=== PATIENT | male | born 1995 | race African-American/Black ===

== ENCOUNTER 2018-09-26 13:32 | Inpatient (IN) | payer OTHER, BC ==
[~2018-09-26 13:32] MED LIST: Iopamidol 370 76% 100 ML VIAL ONE
[2018-09-26] MEDS ORDERED: Fentanyl 100 MCG/2 ML VIAL ONE (13:44)
[2018-09-26 13:53] LABS: #Basophils 0.1 thou/uL (0.0-0.2); #Eosinphils 0.2 thou/uL (0.0-0.7); #Lymphocytes 3.2 thou/uL (1.20-3.40); #Monocytes 0.6 thou/uL (0.11-0.59); %Eosinophils 2.8 % (0.0-10.0); %Lymphocytes 40.1 % (21.0-51.0); %Monocytes 6.9 % (0.0-10.0); %Neutrophils 49.2 % (42.0-75.0); Hemoglobin 14.9 g/dL (14.0-18.0); Mean Corpuscular HGB CONC 33.7 g/dL (32.0-36.0); Mean Corpuscular Hemoglobin 30.6 pg (27.0-31.0); Mean Corpuscular Volume 90.6 fL (78.0-98.0); Mean Platelet Volume 6.6 fL (7.4-10.4); Platelet Count 256 thou/uL (130-400); RBC Distribution Width 11.5 % (11.5-14.5); Red Blood Cell (RBC) Count 4.87 mill/uL (4.70-6.10); White Blood Cell (WBC) Count 8.1 thou/uL (4.8-10.8)
[2018-09-26 14:11] LABS: Alcohol Less than 10 mg/dL (Less than 10); Anion Gap 10 mmol/L (10-20); BUN (Urea Nitrogen) 15 mg/dL (8.9-20.6); Calc. Creatinine Clearance 0 mL/min (70-130); Calcium 9.3 mg/dL (7.8-10.44); Carbon Dioxide 25 mmol/L (22-29); Chloride 109 mmol/L (98-107); Estimated GFR-MDRD Greater than 90; Glucose 106 mg/dL (70-105); Potassium 4.2 mmol/L (3.5-5.1); Sodium 140 mmol/L (136-145)
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
[2018-09-26] MEDS ORDERED: Midazolam HCl 2 mg/2 ml Vial ONE (14:46)
[2018-09-26] MEDS ORDERED: Fentanyl 250 MCG/5 ML VIAL ONE (14:46)
[2018-09-26] MEDS ORDERED: Thrombin 5000 UNITS/5 ML VIAL ONE (14:53)
[2018-09-26] MEDS ORDERED: Lidocaine 1% w/Epinephrine 1:100K 20 ML VIAL ONE (14:53)
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
[2018-09-26 15:18] LABS: Bilirubin Negative (Negative); Blood, Urine Negative (Negative); Clarity CLEAR (Clear); Glucose, Urine (Dipstick) Negative (Negative); Leukocyte Trace (Negative); Nitrite Negative (Negative); Protein, Urine (Dipstick) Negative (Neg-Trace); Specific Gravity, Urine 1.026 (1.002-1.036); pH, Urine 6.5 (5.0-9.0)
[2018-09-26 15:19] LABS: Bacteria/HPF None Seen HPF (None Seen); Hyaline Casts/LPF 4-6 HYALINE CAST LPF (0-3 Hyaline); Pathc Cast-AUWi Flag 0.14 (0-2.49); Squamous Epithelial 0-3 HPF (0-3); WBC/HPF 0-3 HPF (0-3)
[2018-09-26 15:23] LABS: INR-International Normal Ratio 1.1; PTT 32.1 SEC (22.9-36.1); Prothrombin Time 13.9 SEC (12.0-14.7)
[2018-09-26 15:28] LABS: Amphetamine Not Detected (NotDetected); Barbiturates Screen Not Detected (NotDetected); Benzodiazepine Screen Not Detected (NotDetected); Cocaine Metabolite Screen Not Detected (NotDetected); Medtox Control Line Valid? VALID (VALID); Medtox Reader # READER 4; Methadone Not Detected (NotDetected); Methamphetamine Not Detected (NotDetected); Opiate Screen Not Detected (NotDetected); Oxycodone Screen Not Detected (NotDetected); Phencyclidine (PCP) Not Detected (NotDetected); THC/Cannabinoid Screen Detected (NotDetected); Tricyclic Screen Not Detected (NotDetected)
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
[2018-09-26] MEDS ORDERED: ePHEDrine/0.9% NaCl/PF SYRINGE 50 mg/10 ml ONE (16:40)
[2018-09-26] MEDS ORDERED: PHENYLEPHRINE-NS 100 MCG/ML 10 ML SYRINGE ONE (16:40)
[2018-09-26] MEDS ORDERED: Dexamethasone 20 MG/5 ML VIAL ONE (16:40)
[2018-09-26] MEDS ORDERED: PROPOFOL 200 MG/20 ML VIAL ONE (16:40)
[2018-09-26] MEDS ORDERED: Ondansetron PF 4 MG/2 ML Vial ONE (16:40)
[2018-09-26] MEDS ORDERED: Rocuronium Bromide 10 MG/ML (10ML VIAL) ONE (16:40)
[2018-09-26] MEDS ORDERED: Ondansetron HCl/PF 4 MG/2 ML Vial IVP PRN (16:42)
[2018-09-26] MEDS ORDERED: Promethazine HCl 25 MG/ML VIAL SLOW IVP PRN (16:42)
[2018-09-26] MEDS ORDERED: Promethazine HCl 25 MG/ML VIAL IM PRN (16:42)
[2018-09-26] MEDS ORDERED: Dextrose 50% Abboject 50 ML SYRINGE SLOW IVP PRN (17:54)
[2018-09-26] MEDS ORDERED: CEFAZOLIN/Water 2 GM/20 ML SYRINGE SLOW IVP SCH (17:54)
[2018-09-26] MEDS ORDERED: Ondansetron PF 4 MG/2 ML Vial IVP PRN (17:54)
[2018-09-26] MEDS ORDERED: Dextrose 5% in Water 1,000 ML IV PRN (17:54)
[2018-09-26] MEDS ORDERED: hydrALAZINE 20 MG/ML VIAL SLOW IVP PRN (17:54)
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
[2018-09-26] MEDS: Sodium Chloride 0.9% 1,000 ML IV SCH (18:14)
[2018-09-26] MEDS: Acetaminophen 1,000 MG in Premix Bag 1 BAG IVPB SCH (18:28)
[2018-09-26 19:27] VITALS: BMI 27.7
[2018-09-26] MEDS: Famotidine/PF 20 mg/2ml Vial SLOW IVP SCH (21:07)
[2018-09-26] MEDS: Morphine 4 MG/ML VIAL SLOW IVP PRN ×2 (21:07→23:15)
[2018-09-26] MEDS: CEFAZOLIN 2 GM/50 ML-DEXTROSE 2 GM in Premix Bag 1 BAG IVPB SCH (21:07)
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
[2018-09-27] MEDS: Acetaminophen 1,000 MG in Premix Bag 1 BAG IVPB SCH ×4 (00:05→18:07)
--- NOTE | 2018-09-27 00:38 | OP ---
DATE OF PROCEDURE: 09/26/2018 CLINICAL PHARMACY TECHNICIAN: Jovan Royal PA-C. INDICATION: Unstable spine, prevent neurologic decline. DIAGNOSES: Fracture dislocation C6-C7 with associated spondylolisthesis with associated perched facet and incomplete spinal cord injury. PROCEDURE PERFORMED: Application of Rodriguez-Wells tongs with reduction of perched facet at C6-C7, anterior cervical diskectomy and fusion with open reduction, placement of allograft, placement of autograft, anterior cervical plating C6 to C7. ANESTHESIA: General. TECHNIQUE: The patient was brought into the operating room and placed under general anesthesia. He was placed in the supine position. The Rodriguez-Wells tongs was carefully applied to his skull. Weight was incrementally added until there was reduction of the C6-C7 anterolisthesis. This was visualized constantly with C-arm fluoroscopy. We then planned an incision at C6-C7, where we then performed an anterior cervical diskectomy and fusion at C6-C7. All disc materials as well as anterior and posterior osteophytes were removed. The associated and surrounding tissues were erythematous. We did perform additional reduction open. A 6 mm lordotic PEEK cage packed with allograft and autograft material was then placed into the interbody space. An anterior cervical plate was then fashioned to the front of the spine and secured with a total of four fixed screws. The weight on the Rodriguez-Wells tongs was then carefully released. The final C-arm image was obtained, which showed normal alignment of the spine at C6-7. The wound was irrigated. Hemostasis was maintained throughout. The wound was then closed in anatomic layers and a pressure dressing was applied. There were no known procedural complications. Job ID: [id number]
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
[2018-09-27] MEDS: Morphine 4 MG/ML VIAL SLOW IVP PRN ×9 (01:53→23:29)
[2018-09-27 04:45] LABS: #Lymphocytes 1.3 thou/uL (1.20-3.40); #Monocytes 0.8 thou/uL (0.11-0.59); #Neutrophils 7.3 thou/uL (1.40-6.50); %Basophils 0.1 % (0.0-1.0); %Eosinophils 0.1 % (0.0-10.0); %Lymphocytes 13.6 % (21.0-51.0); %Monocytes 8.3 % (0.0-10.0); Hemoglobin 12.6 g/dL (14.0-18.0); Mean Corpuscular HGB CONC 34.5 g/dL (32.0-36.0); Mean Corpuscular Volume 89.9 fL (78.0-98.0); Mean Platelet Volume 6.4 fL (7.4-10.4); Platelet Count 196 thou/uL (130-400); RBC Distribution Width 11.4 % (11.5-14.5); Red Blood Cell (RBC) Count 4.08 mill/uL (4.70-6.10); White Blood Cell (WBC) Count 9.4 thou/uL (4.8-10.8)
[2018-09-27 05:08] LABS: ALT (SGPT) 21 U/L (8-55); AST (SGOT) 41 U/L (5-34); Albumin 3.3 g/dL (3.5-5.0); Alkaline Phosphatase 46 U/L (40-150); Anion Gap 10 mmol/L (10-20); BUN (Urea Nitrogen) 9 mg/dL (8.9-20.6); Calc. Creatinine Clearance 193 mL/min (70-130); Calcium 8.5 mg/dL (7.8-10.44); Carbon Dioxide 24 mmol/L (22-29); Chloride 106 mmol/L (98-107); Estimated GFR-MDRD Greater than 90; Globulin 2.5 g/dL (2.4-3.5); Glucose 100 mg/dL (70-105); Potassium 3.8 mmol/L (3.5-5.1); Protein, Total 5.8 g/dL (6.0-8.3); Sodium 136 mmol/L (136-145)
[2018-09-27] MEDS: CEFAZOLIN 2 GM/50 ML-DEXTROSE 2 GM in Premix Bag 1 BAG IVPB SCH (06:05)
[2018-09-27] MEDS: Sodium Chloride 0.9% 1,000 ML IV SCH ×3 (06:58→18:39)
[2018-09-27] MEDS: Famotidine/PF 20 mg/2ml Vial SLOW IVP SCH ×2 (08:44→20:19)
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
[2018-09-27] MEDS ORDERED: Gabapentin 300 MG CAP PO SCH (21:00)
[2018-09-28] MEDS ORDERED: Ketorolac Tromethamine 30 MG/ML VIAL IVP PRN (00:33)
[2018-09-28] MEDS: Morphine 4 MG/ML VIAL SLOW IVP PRN (02:56)
[2018-09-28] MEDS ORDERED: traMADol HCl 50 MG TAB PO PRN (06:22)
[2018-09-28] MEDS ORDERED: Acetaminophen 1,000 MG in Premix Bag 1 BAG IVPB SCH (06:30)
[2018-09-28] MEDS: Cyclobenzaprine 10 MG TAB PO PRN ×2 (06:38→18:05)
[2018-09-28] MEDS ORDERED: Ibuprofen 800 MG TAB PO SCH (07:00)
[2018-09-28] MEDS: Acetaminophen 500 MG TAB PO SCH ×4 (07:06→23:29)
[2018-09-28] MEDS: Famotidine/PF 20 mg/2ml Vial SLOW IVP SCH (08:14)
[2018-09-28] MEDS: Gabapentin 300 MG CAP PO SCH ×3 (08:14→20:00)
[2018-09-28] MEDS: traMADol HCl 50 MG TAB PO PRN (08:19)
--- NOTE | 2018-09-28 11:01 | PRG ---
DATE OF SERVICE: 09/28/2018 SUBJECTIVE: Mr. Liu is now postop day #2 for an emergent ACDF at C6-C7. He is resting in the bed. His neurologic status continues to be marginally improved inpatient rehab and working with therapy while he is here in-house. Pain is relatively well controlled. Job ID: [id number]
[2018-09-28] MEDS: Ibuprofen 800 MG TAB PO SCH ×2 (14:13→21:06)
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
[2018-09-28] MEDS: Famotidine 20 MG TAB PO SCH (20:00)
[2018-09-29] MEDS: Cyclobenzaprine 10 MG TAB PO PRN (01:16)
[2018-09-29] MEDS: traMADol HCl 50 MG TAB PO PRN ×3 (03:22→16:31)
[2018-09-29] MEDS: Acetaminophen 500 MG TAB PO SCH ×4 (06:33→23:51)
[2018-09-29] MEDS: Ibuprofen 800 MG TAB PO SCH ×3 (06:33→21:14)
[2018-09-29] MEDS: Gabapentin 300 MG CAP PO SCH ×3 (08:52→21:14)
[2018-09-29] MEDS: Famotidine 20 MG TAB PO SCH ×2 (08:52→21:14)
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
[2018-09-29] MEDS: Senokot S 8.6-50 MG TAB PO SCH (21:14)
[2018-09-29] MEDS: Enoxaparin Sodium 40 MG/0.4 ML SYRINGE SC SCH (21:15)
[2018-09-30] MEDS: Ibuprofen 800 MG TAB PO SCH ×3 (06:05→21:34)
[2018-09-30] MEDS: Acetaminophen 500 MG TAB PO SCH ×3 (06:05→17:39)
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
[2018-09-30] MEDS: Polyethylene Glycol 3350 17 GM Packet PO SCH (10:12)
[2018-09-30] MEDS: Senokot S 8.6-50 MG TAB PO SCH ×2 (10:12→21:34)
[2018-09-30] MEDS: Gabapentin 300 MG CAP PO SCH ×3 (10:12→21:34)
[2018-09-30] MEDS: Famotidine 20 MG TAB PO SCH ×2 (10:12→21:34)
[2018-09-30] MEDS: traMADol HCl 50 MG TAB PO PRN ×2 (10:14→17:40)
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
[2018-09-30] MEDS: Enoxaparin Sodium 40 MG/0.4 ML SYRINGE SC SCH (21:34)
[2018-10-01] MEDS: Acetaminophen 500 MG TAB PO SCH ×4 (00:08→18:47)
[2018-10-01] MEDS: traMADol HCl 50 MG TAB PO PRN ×3 (00:15→18:46)
[2018-10-01] MEDS: Ibuprofen 800 MG TAB PO SCH ×3 (06:16→21:39)
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
[2018-10-01] MEDS: Polyethylene Glycol 3350 17 GM Packet PO SCH (09:43)
[2018-10-01] MEDS: Gabapentin 300 MG CAP PO SCH ×3 (09:43→21:39)
[2018-10-01] MEDS: Senokot S 8.6-50 MG TAB PO SCH ×2 (09:43→21:39)
[2018-10-01] MEDS: Famotidine 20 MG TAB PO SCH ×2 (09:43→21:39)
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
[2018-10-01] MEDS: Enoxaparin Sodium 40 MG/0.4 ML SYRINGE SC SCH (21:38)
[2018-10-02] MEDS ORDERED: Sodium Chloride 0.9% 1,000 ML IV SCH (00:01)
[2018-10-02] MEDS: Acetaminophen 500 MG TAB PO SCH ×4 (00:29→17:16)
[2018-10-02] MEDS: traMADol HCl 50 MG TAB PO PRN (03:55)
[2018-10-02] MEDS: Ibuprofen 800 MG TAB PO SCH ×2 (05:22→13:46)
[2018-10-02] MEDS: Polyethylene Glycol 3350 17 GM Packet PO SCH (08:59)
[2018-10-02] MEDS: Senokot S 8.6-50 MG TAB PO SCH (09:00)
[2018-10-02] MEDS: Gabapentin 300 MG CAP PO SCH ×2 (09:00→13:46)
[2018-10-02] MEDS: Famotidine 20 MG TAB PO SCH (09:00)
[2018-10-02 12:27] VITALS: TEMP 98.4
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
[2018-10-02 17:09] VITALS: BP 146/82
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
== END 2018-10-02 19:40 | DRG 959 ==
LOC: ERS 13:32 → NM 15:17 → CCU 17:50 → SURG A 09-27 12:15
PROVIDERS: ADMIT Specialist; ATTEND Specialist
PROC: 0PS304Z Reposition Cervical Vertebra with Internal Fixation Device, Open Approach (ICD-10-PCS; principal; 2018-09-26)
PROC: 0RB30ZZ Excision of Cervical Vertebral Disc, Open Approach (ICD-10-PCS; 2018-09-26)
PROC: 0RG10A0 Fusion of Cervical Vertebral Joint with Interbody Fusion Device, Anterior Approach, Anterior Column, Open Approach (ICD-10-PCS; 2018-09-26)
DX: S14.156A Other incomplete lesion at C6 level of cervical spinal cord, initial encounter (principal); S36.26 Major laceration of pancreas; S12.590A Other displaced fracture of sixth cervical vertebra, initial encounter for closed fracture; S12.690A Other displaced fracture of seventh cervical vertebra, initial encounter for closed fracture; S12.5 Fracture of sixth cervical vertebra; M54.12 Radiculopathy, cervical region; R40.2413 Glasgow coma scale score 13-15, at hospital admission; V49.59XA Passenger injured in collision with other motor vehicles in traffic accident, initial encounter; Y92.410 Unspecified street and highway as the place of occurrence of the external cause
CPT/HCPCS: 36415; 36416; 51702; 70450; 70498; 71260; 72125; 72141; 74177; 76000; 80048; 80053; 80306; 80307; 81003; 81015; 83605; 83690; 85025; 85610; 85730; 90471; 90686; 96374; C1713; C1776; G0008; G0390; J0131; J1100; J1650; J1885; J2001; J2250; J2270; J2405; J2704; J3010; S0028

== ENCOUNTER 2018-11-18 10:04 | Outpatient (CLI) | payer OTHER, BC ==
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
== END 2018-11-18 10:05 | disposition home or self-care (01) ==
LOC: TBSIIMAG 10:04
PROVIDERS: ATTEND Neurological Surgery
DX: S12.101A Unspecified nondisplaced fracture of second cervical vertebra, initial encounter for closed fracture (principal); M54.2 Cervicalgia; Z98.890 Other specified postprocedural states
CPT/HCPCS: 72040